=== PATIENT | female | born 1955 | race Caucasian/White ===

== ENCOUNTER 2016-07-18 08:48 | Emergency (ER) | payer BC ==
[2016-07-18 10:07] VITALS: BP 128/84
--- NOTE | 2016-07-18 10:09 | ERNOTE ---
ENT HPI Date of Service: 07/18/16 Presenting Symptoms: other Time Seen by Provider: 07/18/16 09:23 Source: patient Exam Limitations: no limitations - Immun/Allergies/Home Medications Allergies/Adverse Reactions: Allergies Allergy/AdvReac Type Severity Reaction Status Date / Time nabumetone [From Relafen] Allergy Mild FACE Verified 07/18/16 09:11 SWELLING acetaminophen AdvReac Mild Nausea Verified 07/18/16 09:11 [From Tylenol-Codeine #3] codeine phosphate AdvReac Mild Nausea Verified 07/18/16 09:11 [From Tylenol-Codeine #3] hydrochlorothiazide AdvReac Mild WEAK, Verified 07/18/16 09:11 [From Maxzide] NAUSEA, DIAPHORETIC minoxidil AdvReac Mild EXCESSIVE Verified 07/18/16 09:11 HAIR GROWTH Sulfa (Sulfonamide AdvReac Mild ITCHING, Verified 07/18/16 09:11 Antibiotics) IRRITATION triamterene [From Maxzide] AdvReac Mild WEAK, Verified 07/18/16 09:11 NAUSEA, DIAPHORETIC Home Medications: HOME MEDICATIONS Cyanocobalamin (Vitamin B-12) [Vitamin B-12] 500 mcg PO DAILY 03/04/13 [Last Taken Unknown] Hydrochlorothiazide 12.5 mg PO BID 03/04/13 [Last Taken 04/22/16 06:15] Potassium Chloride [Klor-Con 10] 20 meq PO BID 03/04/13 [Last Taken 04/22/16 06: 15] Pravastatin Sodium [Pravachol] 40 mg PO DAILY 03/04/13 [Last Taken Unknown] Verapamil HCl [Calan Sr] 240 mg PO BID 03/04/13 [Last Taken 04/22/16 06:15] Acetaminophen [Tylenol] 650 mg PO QID PRN 03/18/16 [Last Taken Unknown] Calcium Carb&Cit/Mag12/Vit D3 [Calcium 500 mg Tablet] 1 each PO DAILY 03/18/16 [ Last Taken Unknown] Cholecalciferol (Vitamin D3) [Vitamin D3] 50,000 unit PO Q7D 03/18/16 [Last Taken Unknown] Fosinopril Sodium 20 mg PO BID 03/18/16 [Last Taken 04/22/16 06:15] hydrALAZINE HCL [Apresoline] 25 mg PO BID 03/18/16 [Last Taken Unknown] traMADol HCL [Ultram] 100 mg PO QID PRN 03/18/16 [Last Taken Unknown] Ubidecarenone [Co Q-10] 10 mg PO DAILY 04/22/16 [Last Taken Unknown] Amox Tr/Potassium Clavulanate [Augmentin 500-125 Tablet] 500 mg PO TID #42 tab 07/18/16 [Last Taken Unknown] - History of Present Illness Narrative: Right facial pain, swelling, redness started the night before last and is worsening. NOS. No prior. Eating doesn't worsen. Severity: Present: mild, moderate ENT Location: Present: facial Prearrival Treatment: Present: no prearrival treatment Modifying Factors - Improves: Reports: nothing Modifying Factors - Worsens: Reports: nothing Associated Symptoms - ENT: Reports: denies symptoms Prior Treament: Denies: recently seen, similar symptoms before, currently on antibiotics Review of Systems - Review of Systems Constitutional: Present: no symptoms reported EYE: Present: no symptoms reported ENT: Present: no symptoms reported Respiratory: Present: no symptoms reported Cardiology: Present: no symptoms reported Gastrointestinal/Abdominal: Present: no symptoms reported Genitourinary: Present: no symptoms reported Musculoskeletal: Present: no symptoms reported Skin: Present: See HPI Neurological: Present: no symptoms reported Endocrine: Present: no symptoms reported Hematologic/Lymphatic: Present: no symptoms reported Psych: Present: no symptoms reported All Other Systems: All systems neg except as marked - Patient's Past Medical History Patient History - Medical: GERD, Kidney stone Patient History - Cancer: No Hx of Cancer Patient History - Surgical Procedures: Colonoscopy, D & C, Other - Family History Father Family History - Medical: No pertinent hx Family History - Cardiac/Respiratory: Hypertension Grandfather-Paternal Family History - Medical: No pertinent hx Family History - Cardiac/Respiratory: No pertinent hx Grandmother-Paternal Family History - Medical: No pertinent hx Family History - Cardiac/Respiratory: No pertinent hx Mother Family History - Medical: Diabetes Type 2 Family History - Cardiac/Respiratory: Other Aunt Family History - Medical: No pertinent hx Family History - Cardiac/Respiratory: No pertinent hx - Social History Living Situations: home Alcohol Use: rarely Drug Use: none Physical Exam - Physical Exam General Appearance: Present: wd/wn, alert, no apparent distress Eye Exam: Normal inspection: bilateral, PERRL: bilateral, EOMI: bilateral Ears, Nose, Throat: Present: normal ENT inspection, hearing grossly normal, other - right face red, warm, swollen, mildnly tender Neck: Present: normal inspection, supple, lymphadenopathy (R) Respiratory: Present: no respiratory distress, normal breath sounds Cardiovascular/Chest: Present: regular rate, rhythm, no murmur Gastrointestinal/Abdominal: Present: normal bowel sounds, nontender, nondistended, soft, no organomegaly Back Exam: Present: normal inspection, normal range of motion, no CVA tenderness , no vertebral tenderness Extremity Exam: Present: normal inspection, no edema Neurological Exam: Present: alert, oriented, normal mood/affect Skin Exam: Present: normal color, warm/dry ED Progress - Vital Signs Patient's Vital Signs:: I have reviewed the patient's vital signs. Vital Signs: Vital Signs 07/18/16 09:07 Temperature 36.9 C Pulse Rate 59 L Respiratory 12 Rate Blood Pressure 158/67 O2 Sat by Pulse 96 Oximetry - Progress/Reassessment Chief Complaint: Facial Injury Departure Clinical Impression: Cellulitis Qualifiers: Site of cellulitis: face Qualified Code(s): L03.211 - Cellulitis of face - Departure Disposition: Home self-care Condition: Good Instructions: Cellulitis, Adult, [id number] Additional Instructions: Followup with Dr. Morales next week. Call if worse. Referrals: Norberto Watt MD [Primary Care Provider] - Prescriptions: Amox Tr/Potassium Clavulanate [Augmentin 500-125 Tablet] 500 mg PO TID #42 tab
== END 2016-07-18 10:18 | disposition home or self-care (01) ==
LOC: ER 08:48
DX: L03.211 Cellulitis of face (principal)

== ENCOUNTER 2017-01-21 10:20 | Emergency (ER) | payer BC ==
[2017-01-21 10:40] VITALS: BP 141/65
== END 2017-01-21 10:45 | disposition home or self-care (01) ==
LOC: ER 10:20
DX: Z13.6 Encounter for screening for cardiovascular disorders (principal)